=== PATIENT | female | born 1955 | race Caucasian/White ===

== ENCOUNTER → 2017-10-19 | Outpatient (CLI) | payer OTHER ==
--- NOTE | 2017-10-21 09:37 | MM ---
Reason for exam: screening (asymptomatic). Last mammogram was performed 1 year ago. History: Patient is postmenopausal. Family history of breast cancer in maternal aunt at age 80 and breast cancer in maternal aunt at age 50. Benign left mammotome panel of the left breast, September 26, 2005. Physical Findings: A clinical breast exam by your physician is recommended on an annual basis and results should be correlated with mammographic findings. MG Screening Mammo w CAD Bilateral CC and MLO view(s) were taken. Prior study comparison: October 15, 2016, bilateral MG screening mammo w CAD. September 04, 2015, bilateral MG screening mammo w CAD. August 08, 2014, bilateral MG screening mammo w CAD. There are scattered fibroglandular densities. Previous mammotome biopsy within the left breast. No significant changes when compared with prior studies. ASSESSMENT: Negative, BI-RAD 1 RECOMMENDATION: Routine screening mammogram of both breasts in 1 year.
== END | disposition home or self-care (01) ==
LOC: RADMAMWWP 12:32
PROVIDERS: ATTEND Family Medicine
DX: Z12.31 Encounter for screening mammogram for malignant neoplasm of breast (principal)

== ENCOUNTER → 2018-11-17 | Outpatient (CLI) | payer OTHER ==
--- NOTE | 2018-11-18 13:09 | MM ---
Reason for exam: screening (asymptomatic). Last mammogram was performed 1 year and 1 month ago. History: Patient is postmenopausal. Family history of breast cancer in maternal aunt at age 80 and breast cancer in maternal aunt at age 50. Benign left mammotome panel of the left breast, September 26, 2005. Physical Findings: A clinical breast exam by your physician is recommended on an annual basis and results should be correlated with mammographic findings. MG Screening Mammo w CAD Bilateral CC and MLO view(s) were taken. Prior study comparison: October 19, 2017, bilateral MG screening mammo w CAD. October 15, 2016, bilateral MG screening mammo w CAD. There are scattered fibroglandular densities. There is no discrete abnormality. No significant changes when compared with prior studies. ASSESSMENT: Negative, BI-RAD 1 RECOMMENDATION: Routine screening mammogram of both breasts in 1 year.
== END ==
LOC: RADMAMWWP 16:16
PROVIDERS: ATTEND Family Medicine
DX: Z12.31 Encounter for screening mammogram for malignant neoplasm of breast (principal)
CPT/HCPCS: 77067

== ENCOUNTER 2019-07-29 10:53 | Emergency (ER) | payer OTHER ==
[2019-07-29 11:01] VITALS: TEMP 97.8
[2019-07-29] MEDS ORDERED: LORazepam 1 MG TAB PO STA (11:35)
[2019-07-29] MEDS ORDERED: SODIUM CHLORIDE 0.9% 500 ML 500 ML IV STA (11:35)
[2019-07-29] MEDS ORDERED: ASPIRIN 81 MG PO STA (11:35)
--- NOTE | 2019-07-29 11:41 | ED ---
General Adult HPI - General Chief complaint: Chest Pain Stated complaint: Chest pain Time Seen by Provider: 07/29/19 11:04 Source: patient Mode of arrival: ambulatory Limitations: no limitations - History of Present Illness Initial comments: Dictation was produced using [employer] dictation software. please excuse any grammatical, word or spelling errors. Chief Complaint: 63-year-old female with past medical history asthma, d yslipidemia and hypertension presents with chest pain. History of Present Illness: This 63-year-old female presents today with chest pain. Patient is anxious about her symptoms. Recently patient was carrying a bunch of groceries into her house. The day after she noted that she is having some positional chest pain radiating down her left arm. States it occurs mostly with movements. Patient also has some palpatory tenderness over her left anterior chest and left anterior upper extremity. Patient is anxious about her symptoms. She is really worried that she is having a significant cardiop ulmonary event. Part of patient's worries is because her son from a cardiac related issue. Denies any diaphoresis. Patient states her pain is minimal at rest. Patient has any cardiac history. The ROS documented in this emergency department record has been reviewed and confirmed by me. Those systems with pertinent positive or negative responses have been documented in the HPI. All other systems are other negative and/or noncontributory. PHYSICAL EXAM: General Impression: Alert and oriented x3, not in acute distress, tearful HEENT: Normocephalic atraumatic, extra-ocular movements intact, pupils equal and reactive to light bilaterally, mucous membranes moist. Cardiovascular: Heart regular rate and rhythm, S1&S2 audible, no murmurs, rubs or gallops Chest: Lungs clear to auscultation bilaterally, no rhonchi, no wheeze, no rales, palpatory tenderness to the left anterior chest and left proximal bicep Abdomen: Bowel sounds present, abdomen soft, non-tender, non-distended, no organomegaly Musculoskeletal: Pulses present and equal in all extremities, no peripheral edema Motor: no focal deficits noted Neurological: CN II-XII grossly intact, no focal motor or sensory deficits noted Skin: Intact with no visualized rashes Psych: Anxious ED course: 63-year-old female with past medical history dyslipidemia and hypertension presents chief complaint chest pain. Patient's chest pain is very atypical however they're here today with the expectation to rule out cardiac/pul monary-related disease. As upon arrival shows heart rate of 119. Patient appears very anxious and tearful. Reassurance provided. Patient was adamant about having cardiac enzymes drawn. Laboratory evaluation obtained. CBC, coag panel, d-dimer, metabolic panel is unremarkable. Cardiac enzymes negative. Chest x-ray is nonacute. Patient given anxiolytic medication with complete resolution of symptoms. Patient given lidocaine patch Toradol. Patient told to follow-up with primary care physician upon discharge for outpatient management of symptoms. Return parameters discussed. Patient clear for discharge. EKG interpretation: Ventricular rate 111, sinus tachycardia, ME interval 140, care 72, QTc 448. No ME prolongation, no QTC prolongation, no ST or T-wave changes noted. No old EKG for comparison Overall, this EKG is unremarkable - Related Data Home Medications Medication Instructions Recorded Confirmed ALPRAZolam [Xanax] 0.25 mg PO TID 07/29/19 07/29/19 Aspirin EC [Ecotrin Low Dose] 81 mg PO DAILY 07/29/19 07/29/19 Atorvastatin Calcium [Lipitor] 10 mg PO HS 07/29/19 07/29/19 Losartan/Hydrochlorothiazide 1 tab PO DAILY 07/29/19 07/29/19 [Losartan-Hctz 100-25 mg Tab] Montelukast Sodium [Singulair] 10 mg PO HS 07/29/19 07/29/19 Ubidecarenone [Co Q-10] 300 mg PO DAILY 07/29/19 07/29/19 Allergies Allergy/AdvReac Type Severity Reaction Status Date / Time Beta-Blockers Allergy Unknown Verified 07/29/19 12:00 (Beta-Adrenergic Bloc Iodine and Iodide Containing Allergy Unknown Verified 07/29/19 12:03 Produc latex Allergy Unknown Verified 07/29/19 12:03 Review of Systems ROS Statement: Those systems with pertinent positive or pertinent negative responses have been documented in the HPI. ROS Other: All systems not noted in ROS Statement are negative. Past Medical History Past Medical History: Asthma, Hyperlipidemia, Hypertension Additional Past Medical History / Comment(s): tremors Past Surgical History: Cholecystectomy, Hysterectomy, Joint Replacement Additional Past Surgical History / Comment(s): R knee Past Psychological History: Anxiety, Depression Smoking Status: Never smoker Past Alcohol Use History: None Reported Past Drug Use History: None Reported General Exam Limitations: no limitations Course Vital Signs 07/29/19 10:57 Temperature 97.8 F Pulse Rate 119 H Respiratory 18 Rate Blood Pressure 167/88 O2 Sat by Pulse 96 Oximetry Medical Decision Making - Lab Data Result diagrams: 07/29/19 11:32 07/29/19 11:32 Lab Results 07/29/19 07/29/19 07/29/19 Range/Units 11:32 11:32 11:32 WBC 11.4 H (3.8-10.6) k/uL RBC 4.88 (3.80-5.40) m/uL Hgb 13.9 (11.4-16.0) gm/dL Hct 41.6 (34.0-46.0) % MCV 85.2 (80.0-100.0) fL MCH 28.5 (25.0-35.0) pg MCHC 33.5 (31.0-37.0) g/dL RDW 15.6 H (11.5-15.5) % Plt Count 329 (150-450) k/uL Neutrophils % 76 % Lymphocytes % 18 % Monocytes % 5 % Eosinophils % 1 % Basophils % 0 % Neutrophils # 8.6 H (1.3-7.7) k/uL Lymphocytes # 2.0 (1.0-4.8) k/uL Monocytes # 0.5 (0-1.0) k/uL Eosinophils # 0.1 (0-0.7) k/uL Basophils # 0.0 (0-0.2) k/uL PT 10.2 (9.0-12.0) sec INR 0.9 (<1.2) APTT 25.5 (22.0-30.0) sec D-Dimer 0.24 (<0.60) mg/L FEU Sodium 142 (137-145) mmol/L Potassium 3.8 (3.5-5.1) mmol/L Chloride 106 (98-107) mmol/L Carbon Dioxide 24 (22-30) mmol/L Anion Gap 12 mmol/L BUN 19 H (7-17) mg/dL Creatinine 0.53 (0.52-1.04) mg/dL Est GFR (CKD-EPI)AfAm >90 (>60 ml/min/1.73 sqM) Est GFR (CKD-EPI)NonAf >90 (>60 ml/min/1.73 sqM) Glucose 129 H (74-99) mg/dL Calcium 10.2 (8.4-10.2) mg/dL Magnesium 1.8 (1.6-2.3) mg/dL Total Bilirubin 0.5 (0.2-1.3) mg/dL AST 24 (14-36) U/L ALT 21 (9-52) U/L Alkaline Phosphatase 136 H (38-126) U/L Troponin I (0.000-0.034) ng/mL Total Protein 7.7 (6.3-8.2) g/dL Albumin 4.4 (3.5-5.0) g/dL Lipase 84 (23-300) U/L 07/29/19 Range/Units 11:32 WBC (3.8-10.6) k/uL RBC (3.80-5.40) m/uL Hgb (11.4-16.0) gm/dL Hct (34.0-46.0) % MCV (80.0-100.0) fL MCH (25.0-35.0) pg MCHC (31.0-37.0) g/dL RDW (11.5-15.5) % Plt Count (150-450) k/uL Neutrophils % % Lymphocytes % % Monocytes % % Eosinophils % % Basophils % % Neutrophils # (1.3-7.7) k/uL Lymphocytes # (1.0-4.8) k/uL Monocytes # (0-1.0) k/uL Eosinophils # (0-0.7) k/uL Basophils # (0-0.2) k/uL PT (9.0-12.0) sec INR (<1.2) APTT (22.0-30.0) sec D-Dimer (<0.60) mg/L FEU Sodium (137-145) mmol/L Potassium (3.5-5.1) mmol/L Chloride (98-107) mmol/L Carbon Dioxide (22-30) mmol/L Anion Gap mmol/L BUN (7-17) mg/dL Creatinine (0.52-1.04) mg/dL Est GFR (CKD-EPI)AfAm (>60 ml/min/1.73 sqM) Est GFR (CKD-EPI)NonAf (>60 ml/min/1.73 sqM) Glucose (74-99) mg/dL Calcium (8.4-10.2) mg/dL Magnesium (1.6-2.3) mg/dL Total Bilirubin (0.2-1.3) mg/dL AST (14-36) U/L ALT (9-52) U/L Alkaline Phosphatase (38-126) U/L Troponin I <0.012 (0.000-0.034) ng/mL Total Protein (6.3-8.2) g/dL Albumin (3.5-5.0) g/dL Lipase (23-300) U/L Disposition Clinical Impression: Chest wall muscle strain Disposition: HOME SELF-CARE Condition: Good Instructions (If sedation given, give patient instructions): Chest Pain (ED) Is patient prescribed a controlled substance at d/c from ED?: No Referrals: Stanislav Shah DO [Primary Care Provider] - 1-2 days Time of Disposition: 13:14
[2019-07-29 11:56] LABS: Basophils % (A) 0 %; Eosinophils # (A) 0.1 k/uL (0-0.7); Eosinophils % (A) 1 %; HCT 41.6 % (34.0-46.0); HGB 13.9 gm/dL (11.4-16.0); Lymphocytes % (A) 18 %; MCH 28.5 pg (25.0-35.0); MCHC 33.5 g/dL (31.0-37.0); MCV 85.2 fL (80.0-100.0); Mean Platelet Volume 7.2; Monocytes # (A) 0.5 k/uL (0-1.0); Monocytes % (A) 5 %; Neutrophils # (A) 8.6 k/uL (1.3-7.7); Neutrophils % (A) 76 %; Platelet Count 329 k/uL (150-450); RBC 4.88 m/uL (3.80-5.40); RDW 15.6 % (11.5-15.5); WBC 11.4 k/uL (3.8-10.6)
[2019-07-29 12:04] LABS: ALT 21 U/L (9-52); AST 24 U/L (14-36); African American GFR (CKD) >90 (>60 ml/min/1.73 sqM); Albumin 4.4 g/dL (3.5-5.0); Alkaline Phosphatase 136 U/L (38-126); Anion Gap 12 mmol/L; Blood Urea Nitrogen 19 mg/dL (7-17); Calcium 10.2 mg/dL (8.4-10.2); Carbon Dioxide 24 mmol/L (22-30); Chloride 106 mmol/L (98-107); Glucose 129 mg/dL (74-99); Magnesium 1.8 mg/dL (1.6-2.3); Potassium 3.8 mmol/L (3.5-5.1); Sodium 142 mmol/L (137-145); Total Bilirubin 0.5 mg/dL (0.2-1.3); Total Protein 7.7 g/dL (6.3-8.2)
[2019-07-29 12:12] LABS: D-Dimer 0.24 mg/L FEU (<0.60); INR 0.9 (<1.2); Partial Thromboplastin Time 25.5 sec (22.0-30.0); Prothrombin Time 10.2 sec (9.0-12.0)
--- NOTE | 2019-07-29 12:25 | XR ---
EXAMINATION TYPE: XR chest 2V DATE OF EXAM: 07/29/2019 COMPARISON: None HISTORY: 63-year-old female with chest pain TECHNIQUE: PA and lateral views FINDINGS: Heart normal size. Aorta and pulmonary vasculature within normal limits. Mild strandy atelectasis lef t base. No consolidation or pleural effusion. IMPRESSION: No acute cardiopulmonary process.
[2019-07-29] MEDS ORDERED: KETOROLAC 30 MG/ML 1 ML VIAL IVP STA (13:06)
[2019-07-29] MEDS ORDERED: LIDOCAINE 5% PATCH TOPICAL STA (13:10)
[2019-07-29 13:17] VITALS: BP 132/79; PULSE 92; RESP 16
== END 2019-07-29 13:31 | disposition home or self-care (01) ==
LOC: EC 10:53
DX: S29.011A Strain of muscle and tendon of front wall of thorax, initial encounter (principal); R00.0 Tachycardia, unspecified; E78.5 Hyperlipidemia, unspecified; I10 Essential (primary) hypertension; F41.9 Anxiety disorder, unspecified; F32.9 Major depressive disorder, single episode, unspecified; Z79.82 Long term (current) use of aspirin; Z79.899 Other long term (current) drug therapy; Z91.040 Latex allergy status; Z91.041 Radiographic dye allergy status; Z88.8 Allergy status to other drugs, medicaments and biological substances; Z96.651 Presence of right artificial knee joint; X50.0XXA Overexertion from strenuous movement or load, initial encounter
CPT/HCPCS: 36415; 93005; 85379; 80053; 83690; 83735; 84484; 85025; 85610; 85730; 71046; 99285; 96374; J1885

== ENCOUNTER 2022-05-14 09:40 | Day surgery (SDC) | payer MEDICARE, OTHER ==
[2022-05-13 09:21] VITALS: BMI 41.8
[~2022-05-14 09:40] MED LIST: LACTATED RINGERS 1,000 ML IV SCH; LIDOCAINE 1% (10MG/ML) FOR IV START INTRADERMA PRN
[2022-05-14 10:12] VITALS: RESP 16; TEMP 98.7
[2022-05-14] MEDS ORDERED: PROPOFOL 10 MG/ML 20 ML VIAL IV ONE (10:31)
[2022-05-14] MEDS ORDERED: LIDOCAINE 2% INJ 20 MG/ML (2 ML VIAL) ONE (10:31)
[2022-05-14] MEDS ORDERED: MIDAZOLAM 2 MG/2 ML VIAL ONE (10:31)
--- NOTE | 2022-05-14 10:45 | P.PCN ---
Date of Procedure: 05/14/22 Procedure(s) Performed: BRIEF HISTORY: Patient is a 66-year-old pleasant white female scheduled for an elective colonoscopy as a part of screening for colorectal neoplasia. PROCEDURE PERFORMED: Colonoscopy snare polypectomy. PREOPERATIVE DIAGNOSIS: Screening for colon cancer. IV sedation per Anesthesia. PROCEDURE: After informed consent was obtained, the patient, was brought into the endoscopy unit. IV sedation was administered by Anesthesia under continuous monitoring. Digital rectal examination was normal. Initially the Olympus CF-160 flexible video colonoscope was then inserted in the rectum, gradually advanced into the cecum without any difficulty. Careful examination was performed as the scope was gradually being withdrawn. Ileocecal valve and the appendiceal orifice were visualized and appeared normal. Prep was excellent. In the cecum there was a 5 mm sessile polyp removed by snare polypectomy. Rest of the mucosa of the cecum, ascending colon, transverse colon, descending colon, sigmoid colon, and rectum appeared normal. Retroflexion was performed in the rectum and no lesions were seen. The patient tolerated the procedure well. IMPRESSION: 5 mm cecal polyp status post polypectomy Rest of the colon appeared normal RECOMMENDATIONS: Findings of this examination were discussed with the patient is well as her family. She was advised to follow with the biopsy results. If the biopsy results revealed an adenoma she can have a repeat colonoscopy in 5 years
[2022-05-14 11:06] VITALS: BP 133/86; PULSE 95
== END 2022-05-14 11:22 | disposition home or self-care (01) ==
LOC: ORWHC2ENDO 09:40
PROVIDERS: ATTEND Internal Medicine Gastroenterology
DX: D12.0 Benign neoplasm of cecum (principal); Z79.899 Other long term (current) drug therapy; Z79.51 Long term (current) use of inhaled steroids; Z88.8 Allergy status to other drugs, medicaments and biological substances; Z91.040 Latex allergy status; G47.33 Obstructive sleep apnea (adult) (pediatric); F32.A Depression, unspecified; Z90.49 Acquired absence of other specified parts of digestive tract; Z90.710 Acquired absence of both cervix and uterus
CPT/HCPCS: 88305; 45385; J2250; J2704; J2001